=== PATIENT | female | born 1935 | race Caucasian/White ===

== ENCOUNTER 2017-10-18 23:10 | Observation (INO) | payer MEDICARE, OTHER ==
[~2017-10-18] VITALS: Ht 162.6 cm; Wt 80.3 kg
[2017-10-19] MEDS ORDERED: SODIUM CHLORIDE 0.9% 100 ML IV STA (00:52)
[2017-10-19 01:33] LABS: BASOPHILS % 0.5 % (0.0-1.0); EOSINOPHILS # (AUTO) 0.3 (0.0-0.4); EOSINOPHILS % 3.8 % (0.0-6.0); HEMATOCRIT 39.9 % (34.2-44.1); HEMOGLOBIN 13.6 g/dL (12.0-16.0); LYMPHOCYTES # (AUTO) 2.4 (1.0-3.2); LYMPHOCYTES % 32.4 % (18.0-39.1); MEAN CORPUSCULAR HEMOGLOBIN 30.1 pg (28-32); MEAN CORPUSCULAR HGB CONC 34.1 g/dL (31-35); MEAN CORPUSCULAR VOLUME 88.3 fL (81-99); MONOCYTES # (AUTO) 0.9 (0.2-0.8); MONOCYTES % 11.6 % (4.4-11.3); NEUTROPHILS # (AUTO) 3.8 (2.1-6.9); NEUTROPHILS % 51.3 % (38.7-80.0); PLATELET COUNT 287 x10e3/uL (140-360); RED BLOOD COUNT 4.52 x10e6/uL (3.6-5.1)
[2017-10-19 01:43] LABS: INR 1.14; PROTHROMBIN TIME 13.7 seconds (11.9-14.5)
[2017-10-19 01:44] LABS: PARTIAL THROMBOPLASTIN TIME 29.6 seconds (23.8-35.5)
[2017-10-19 01:53] LABS: ALANINE AMINOTRANSFERASE 8 IU/L (0-55); ALBUMIN 3.7 g/dL (3.5-5.0); ALBUMIN/GLOBULIN RATIO 1.1 (0.8-2.0); ALKALINE PHOSPHATASE 68 IU/L (40-150); ANION GAP 13.9 mmol/L (8-16); BLOOD UREA NITROGEN 11 mg/dL (7-26); BUN/CREATININE RATIO 14 (6-25); CALCIUM 9.6 mg/dL (8.4-10.2); CARBON DIOXIDE 24 mmol/L (22-29); CHLORIDE 101 mmol/L (98-107); CREATINE KINASE 22 IU/L (29-168); CREATININE, SERUM 0.76 mg/dL (0.57-1.11); EST GLOMERULAR FILTRATION RATE > 60 ML/MIN (60-); GLUCOSE 95 mg/dL (74-118); POTASSIUM 3.9 mmol/L (3.5-5.1); SODIUM 135 mmol/L (136-145)
[2017-10-19 02:45] LABS: BILIRUBIN,URINE NEGATIVE (NEGATIVE); CLARITY,URINE CLEAR (CLEAR); COLOR,URINE YELLOW (YELLOW); KETONES,URINE NEGATIVE (NEGATIVE); LEUKOCYTE ESTERASE ,URINE TRACE (NEGATIVE); NITRITE,URINE NEGATIVE (NEGATIVE); PROTEIN,URINE DIPSTICK NEGATIVE (NEGATIVE); URINE UROBILINOGEN 0.2 mg/dL (0.2 - 1)
[2017-10-19 03:00] LABS: BACTERIA,URINE FEW /HPF; WBC,URINE (MAN) 0-5 /HPF (0-5)
[2017-10-19 03:01] LABS: EPITHELIAL CELLS,URINE RARE /LPF; TRANSITIONAL EPI CELLS,URINE FEW
[2017-10-19] MEDS ORDERED: CLONIDINE HCL 0.1 MG TAB PO ONE (03:15)
[2017-10-19] MEDS ORDERED: CLONIDINE HCL 0.1 MG TAB ONE (03:16)
[2017-10-19] MEDS ORDERED: ASPIRIN 81 MG CHEW TAB PO ONE (03:30)
[2017-10-19] MEDS: METOPROLOL TARTRATE 25 MG TAB PO SCH ×2 (03:41→09:00)
[2017-10-19] MEDS: ASPIRIN 81 MG CHEW TAB PO ONE ×2 (03:42→03:49)
[2017-10-19 06:02] LABS: CHOL/HDL RATIO 2.9 (3.0-3.6)
[2017-10-19] MEDS ORDERED: FLECTOR1 EACH PO (06:48)
[2017-10-19] MEDS ORDERED: DULCOLAX5 MG PO (06:48)
[2017-10-19] MEDS ORDERED: SYNTHROID112 MCG PO (06:48)
[2017-10-19] MEDS ORDERED: VITAMIN D250000 UNIT PO (06:48)
[2017-10-19] MEDS ORDERED: BENICAR20 MG PO (06:48)
[2017-10-19] MEDS: ASPIRIN 81 MG ENTERIC COATED PO SCH (07:57)
[2017-10-19 09:32] LABS: CREATINE KINASE 20 IU/L (29-168)
--- NOTE | 2017-10-19 14:16 | Consultation ---
DATE OF CONSULTATION: October 19, 2017 REQUESTING PHYSICIAN: Dr. Keenan REASON FOR CONSULTATION: Ventricular tachycardia. HISTORY OF PRESENT ILLNESS: This is an 82-year-old woman with history of hypertension and hypothyroidism who was instructed to present to the ER after she was noted to have nonsustained ventricular tachycardia on her emergency registrar. She had been undergoing evaluation in the office due to episodes of dizziness and syncope. The episodes were sudden onset without chest pain or palpitations. The patient indicated that she was typically standing when she suddenly felt dizzy and then would fall down. As a result of this fall, she has had spinal fracture for which she underwent kyphoplasty. She denies any symptoms currently. Denies any edema, orthopnea or PND. She does not report any symptoms of dizziness around the time of her telemetry recording. REVIEW OF SYSTEMS: Negative except as per HPI. PAST MEDICAL HISTORY 1. Hypertension. 2. Hypothyroidism. PAST SURGICAL HISTORY 1. Tonsillectomy. 2. Hysterectomy. 3. Cholecystectomy. 4. Bilateral knee replacement. 5. Kyphoplasty. ALLERGIES: NO KNOWN DRUG ALLERGIES. MEDICATIONS: Please see medication list. SOCIAL HISTORY: No tobacco, alcohol or illicit drugs. FAMILY HISTORY: None. PHYSICAL EXAMINATION VITAL SIGNS: Temperature 97.5 degrees, pulse 61, respirations 18, blood pressure 134/62. Oxygen saturation 99%. GENERAL: Elderly woman. No acute distress. Awake and alert. LUNGS: Clear to auscultation bilaterally. No wheezes or crackles. CARDIOVASCULAR: Normal rate, regular rhythm. A 2/6 systolic murmur. Normal S1, S2. ABDOMEN: Soft, nontender. EXTREMITIES: No edema. NEURO: Nonfocal exam. LABS: WBC 7.3, hemoglobin 13.6, hematocrit 39.9, platelets 287. Sodium 135, potassium 3.9, chloride 101, CO2 24, BUN 11, creatinine 0.76. Troponin less than 0.001. Cholesterol 190, triglycerides 71, LDL 111, HDL 65. EKG: Normal sinus rhythm, normal ECG. IMPRESSION 1. Nonsustained ventricular tachycardia. 2. Syncope. 3. Moderate aortic stenosis. 4. Hypothyroidism. We will check orthostatic vitals. Given nonsustained ventricular tachycardia, plan to proceed with ischemic evaluation. Patient will remain n.p.o. after midnight and cardiac catheterization will be performed tomorrow. Check orthostatic vitals. Thank you for this consult. We will continue to follow. Job#: [id number] WILLARD
[2017-10-19 15:30] VITALS: BP 134/60
[2017-10-19 15:47] VITALS: BP 134/60
[2017-10-19 17:14] LABS: CREATINE KINASE 18 IU/L (29-168)
[2017-10-19] MEDS ORDERED: BISACODYL 5 MG TAB EC PO PRN (18:45)
[2017-10-19 20:00] VITALS: BP_SYST 150; BP_SYST 153; BP_SYST 155; BP_DIAS 70; BP_DIAS 72
[2017-10-19] MEDS ORDERED: MAGNESIUM HYDROXIDE 30 ML UDC PO NR (21:00)
[2017-10-20] VITALS (7 sets, daily range): BP systolic 138–187; BP diastolic 63–80
[2017-10-20] MEDS: METOPROLOL TARTRATE 25 MG TAB PO SCH (02:44)
[2017-10-20] MEDS ORDERED: LEVOTHYROXINE SODIUM 112 MCG TAB PO SCH (06:00)
[2017-10-20] MEDS ORDERED: SODIUM CHLORIDE 0.9% 1000ML 1,000 ML ONE (06:33)
[2017-10-20] MEDS ORDERED: MIDAZOLAM HCL 2 MG/2 ML VIAL ONE (06:33)
[2017-10-20] MEDS ORDERED: IOPAMIDOL 370 MG/ML 200 ML INFUS..BTL INJ ONE (06:33)
[2017-10-20] MEDS ORDERED: FENTANYL CITRATE/PF 100MCG/2 ML INJ ONE (06:33)
[2017-10-20] MEDS ORDERED: LIDOCAINE HCL 2% LOCAL 20 ML VIAL ONE (06:33)
[2017-10-20] MEDS ORDERED: HEPARIN SOD/SOD CHLORIDE 2,000 ML ONE (06:33)
[2017-10-20] MEDS: ASPIRIN 81 MG ENTERIC COATED PO SCH (08:37)
--- NOTE | 2017-10-20 08:51 | Operative Report ---
DATE OF PROCEDURE: October 20, 2017 INDICATIONS: Coronary artery disease with ventricular tachycardia. PROCEDURES PERFORMED 1. Left heart catheterization, selective coronary angiography. 2. Deployment of right groin Vascade closure device. COMPLICATIONS: None. RECOMMENDATIONS: Medical therapy. Access was obtained in the right femoral artery. A 6-[place] sheath was placed. Diagnostic coronary angiogram revealed patent left main. Left anterior descending artery proximal 50% extending into the mid left anterior descending artery. The diagonal had 50% stenosis. This was a dominant vessel of the same size. No intervention was deemed necessary. Circumflex and right coronary artery had mild coronary artery disease. Right groin was repaired using Vascade closure device. Patient discharged home the same day. Job#: [id number]
[2017-10-20] MEDS ORDERED: OLMESARTAN 20 MG TAB PO SCH (09:00)
--- NOTE | 2017-10-20 12:44 | Progress Note ---
DATE: October 20, 2017 SUBJECTIVE: The patient denies chest pain or shortness of breath. She underwent cardiac catheterization this morning which revealed moderate coronary artery disease without intervention required. OBJECTIVE VITAL SIGNS: Temperature 95.8 degrees, pulse 51, respiratory rate 18, blood pressure 186/79. Oxygen saturation 100% on room air. GENERAL: Awake, alert, in no acute distress. LUNGS: Clear to auscultation bilaterally. No wheezes or crackles. CARDIOVASCULAR: Normal rate, regular rhythm. A 2/6 systolic murmur. Normal S1, S2. ABDOMEN: Soft, nontender. EXTREMITIES: No edema. Right groin without hematoma or bruit. CARDIAC MEDICATIONS 1. Metoprolol tartrate 25 mg p.o. q.12 hours. 2. Levothyroxine 112 mcg p.o. daily. 3. Aspirin 81 mg p.o. daily. 4. Olmesartan 40 mg p.o. daily. LABS: None today. TELEMETRY: Normal sinus rhythm. No further episodes of ventricular tachycardia were observed. IMPRESSION 1. Non-sustained ventricular tachycardia. 2. Syncope. 3. Moderate aortic stenosis. 4. Hypothyroidism. RECOMMENDATIONS: Orthostatic vitals were negative. She has had no further arrhythmias and cardiac catheterization was without evidence of significant stenoses. Continue current cardiac medications. Patient is instructed to resume wearing her Event monitor. Please have her followup with us in the office in 1 to 2 weeks. Thank you for this consult. We will continue to follow. Job#: [id number] WILLARD
== END 2017-10-20 12:31 | disposition home or self-care (01) ==
LOC: ER 23:10 → ERHOLD 10-19 03:19 → IMCU 10-19 15:36
DX: I47.2 Ventricular tachycardia (principal); I35.0 Nonrheumatic aortic (valve) stenosis; I25.10 Atherosclerotic heart disease of native coronary artery without angina pectoris; G62.9 Polyneuropathy, unspecified; R29.6 Repeated falls; I10 Essential (primary) hypertension; E03.9 Hypothyroidism, unspecified; Z96.653 Presence of artificial knee joint, bilateral
CPT/HCPCS: 36415; 75605; 80053; 80061; 81001; 82550; 82553; 84484; 85025; 85610; 85730; 93005; 93454; 99284; C1760; C1769; G0378 ×2; J2001; J2250; J7030; Q9967; 93458

== ENCOUNTER → 2018-01-04 | Day surgery (SDC) | payer MEDICARE, OTHER ==
[~2018-01-04] VITALS: Ht 165.1 cm; Wt 81.6 kg
[~2018-01-04] MED LIST: ARTHROTEC EC 51 EACH PO; ASPIR-LOW81 MG PO; BENICAR20 MG PO; DULCOLAX5 MG PO; FLECTOR1 EACH PO; GABAPENTIN100 MG PO; IBUPROFEN200 MG PO; LIDOCAINE 1% W/EPINEPHRINE 20 ML VIAL ONE; PRAVASTATIN SOD10 MG PO; PROLIA60 MG/1 ML IM; SYNTHROID112 MCG PO; VITAMIN B-12 IM; VITAMIN D22000 UNIT PO; VITAMIN D250000 UNIT PO
[2018-01-04 13:28] VITALS: BP 176/73
--- NOTE | 2018-01-04 14:24 | Operative Report ---
DATE OF PROCEDURE: January 04, 2018 INDICATIONS: Palpitations and atrial fibrillation. PROCEDURE PERFORMED: Insertable loop recorder. COMPLICATIONS: None. BLOOD LOSS: None. RECOMMENDATIONS: Remote monitoring. Left anterior chest wall was anesthetized using subcutaneous lidocaine. A [employer] LINQ, serial number [id number], was inserted without complications. Skin approximated using Dermabond. Patient discharged home the same day. Job#: [id number]
== END | disposition home or self-care (01) ==
LOC: CATH LAB 11:00
PROVIDERS: ATTEND Internal Medicine Interventional Cardiology
DX: I48.91 Unspecified atrial fibrillation (principal); I10 Essential (primary) hypertension; Z68.30 Body mass index [BMI] 30.0-30.9, adult; Z79.82 Long term (current) use of aspirin; E07.9 Disorder of thyroid, unspecified; Z82.49 Family history of ischemic heart disease and other diseases of the circulatory system
CPT/HCPCS: 33282; C1764

== ENCOUNTER → 2019-03-26 | Day surgery (SDC) | payer MEDICARE, OTHER ==
[2019-03-21 12:35] LABS: BASOPHILS % 0.6 % (0.0-1.0); EOSINOPHILS # (AUTO) 0.2 (0.0-0.4); EOSINOPHILS % 3.7 % (0.0-6.0); HEMOGLOBIN 12.5 g/dL (12.0-16.0); LYMPHOCYTES # (AUTO) 1.5 (1.0-3.2); LYMPHOCYTES % 24.8 % (18.0-39.1); MEAN CORPUSCULAR HEMOGLOBIN 30.3 pg (28-32); MEAN CORPUSCULAR HGB CONC 33.8 g/dL (31-35); MEAN CORPUSCULAR VOLUME 89.8 fL (81-99); MONOCYTES # (AUTO) 0.8 (0.2-0.8); MONOCYTES % 12.7 % (4.4-11.3); NEUTROPHILS # (AUTO) 3.6 (2.1-6.9); NEUTROPHILS % 57.9 % (38.7-80.0); PLATELET COUNT 288 x10e3/uL (140-360); RED BLOOD COUNT 4.12 x10e6/uL (3.6-5.1); RED CELL DISTRIBUTION WIDTH 12.5 % (11.7-14.4)
[2019-03-21 14:59] LABS: ANION GAP 10.7 mmol/L (8-16); BLOOD UREA NITROGEN 10 mg/dL (7-26); BUN/CREATININE RATIO 13 (6-25); CARBON DIOXIDE 27 mmol/L (22-29); CHLORIDE 99 mmol/L (98-107); CREATININE, SERUM 0.78 mg/dL (0.57-1.11); EST GLOMERULAR FILTRATION RATE > 60 ML/MIN (60-); GLUCOSE 73 mg/dL (74-118); POTASSIUM 4.7 mmol/L (3.5-5.1); SODIUM 132 mmol/L (136-145)
[2019-03-21 15:00] LABS: ALBUMIN 3.6 g/dL (3.5-5.0); ALBUMIN/GLOBULIN RATIO 1.2 (0.8-2.0); ALKALINE PHOSPHATASE 85 IU/L (40-150)
[2019-03-21 15:15] LABS: ALANINE AMINOTRANSFERASE < 6 IU/L (0-55)
[~2019-03-26] VITALS: Ht 165.1 cm; Wt 89.4 kg
[2019-03-26] VITALS (7 sets, daily range): BP systolic 134–190; BP diastolic 70–87
[~2019-03-26] MED LIST changes: +ALPRAZOLAM 0.5 MG TAB ONE; +BIVALRIUDIN 250 MG/VIAL VIAL IV ONE; +DIPHENHYDRAMINE HCL 25 MG CAP ONE; +FENTANYL CITRATE/PF 100MCG/2 ML INJ ONE; +HEPARIN SOD/SOD CHLORIDE 2,000 ML ONE; +IOPAMIDOL 370 MG/ML 200 ML INFUS..BTL INJ ONE; +LEVOTHYROXINE50 MCG PO; -LIDOCAINE 1% W/EPINEPHRINE 20 ML VIAL ONE; +LIDOCAINE HCL 2% LOCAL 20 ML VIAL ONE; +METOPROLOL SUCC25 MG PO; +MIDAZOLAM HCL 2 MG/2 ML VIAL ONE; +OMEPRAZOLE40 MG PO; +SODIUM CHLORIDE 0.9% 1000ML 1,000 ML ONE
--- NOTE | 2019-03-26 16:10 | NUR ---
Pt meets DC criteria. right radial assessed for s/s of complication and presence of hematoma. Overall skin appearance warm, dry, no discolor, and pulses present. IV removed from left forearm. Distal tip appears intact. VS WNL. Pt denies pain, sob, or need at this time. Family at bedside assisting with ADL's. Review of discharge paperwork and follow up instructions. POST radial wrist reminder placed per family request. reminder to remove wrist reminder in AM and to discard. Not for halfway use. verbalized understanding. Pt to wheelchair and transported to front of hospital. Transferred to private vehicle under own strength w/o incident with DC paperwork in hand. - cgf
--- NOTE | 2019-03-27 12:25 | Operative Report ---
DATE OF PROCEDURE: 03/26/2019 SURGEON: Jens Dickey MD INDICATIONS: Coronary artery disease, aortic valve stenosis. PROCEDURES PERFORMED: 1. Left heart catheterization, selective coronary angiography. 2. Deployment of right wrist TR band. COMPLICATIONS: None. RECOMMENDATIONS: Transcatheter aortic valve replacement. DESCRIPTION OF PROCEDURE: Access obtained in the right radial artery. A 5-Turkish sheath was placed. Coronary angiography demonstrated mild coronary artery disease in the circumflex and right coronary artery, 10% to 20% luminal stenosis, mid diagonal and mid left anterior descending artery 50% stenosis. No critical stenosis or occlusions were noted. No intervention indicated. Right wrist TR band applied. The patient discharged home the same day. Jens Dickey MD KSB/MODL /[id number]
== END | disposition home or self-care (01) ==
LOC: CATH LAB 12:55
PROVIDERS: ATTEND Internal Medicine Interventional Cardiology
DX: I25.118 Atherosclerotic heart disease of native coronary artery with other forms of angina pectoris (principal); I35.0 Nonrheumatic aortic (valve) stenosis; I10 Essential (primary) hypertension; I48.91 Unspecified atrial fibrillation; Z01.812 Encounter for preprocedural laboratory examination; Z79.82 Long term (current) use of aspirin; Z68.34 Body mass index [BMI] 34.0-34.9, adult; Z82.49 Family history of ischemic heart disease and other diseases of the circulatory system
CPT/HCPCS: 36415; 80053; 85025; 93454; C1769 ×2; C1887; J2001; J2250; J3010; J7030; Q9967; 99152; J0583